=== PATIENT | female | born 1965 | race African-American/Black ===

== ENCOUNTER 2019-05-19 09:38 | Inpatient (IN) | payer MEDICAID ==
[~2019-05-19] VITALS: Ht 170.2 cm; Wt 76.7 kg
[2019-05-19] MEDS ORDERED: SODIUM CHLORIDE 0.9% 1,000 ML IV ONE ×2 (10:10)
[2019-05-19 10:52] LABS: CLARITY URINE CLEAR (CLEAR); COLOR URINE YELLOW (YELLOW); KETONES URINE NEGATIVE (NEGATIVE); LEUKOCYTE ESTERASE URINE NEGATIVE (NEGATIVE); NITRITE URINE NEGATIVE (NEGATIVE); OCCULT BLOOD URINE TRACE (NEGATIVE); PROTEIN URINE 1+ (NEGATIVE); SPECIFIC GRAVITY URINE 1.025 (1.005-1.030); UROBILINOGEN URINE 0.2 E.U./dL (0.2-1.0)
[2019-05-19 10:54] LABS: BASOPHILS % 0.6 % (0.0-2.0); EOSINOPHILS % 0.7 % (0.0-5.0); HEMATOCRIT. 37.1 % (36.0-48.0); HEMOGLOBIN. 12.7 g/dL (12.0-16.0); LYMPHOCYTES % 11.1 % (20.0-50.0); MEAN CORPUSCULAR HEMOGLOBIN 31.1 pg (28.0-32.0); MEAN CORPUSCULAR VOLUME 90.6 fL (81.0-99.0); MEAN PLATELET VOLUME 11.2 fl (7.4-10.4); MONOCYTES % 3.9 % (2.0-8.0); NEUTROPHILS % 83.7 % (40.0-76.0); PLATELET 172 x1000/uL (130-400); RED BLOOD CELL COUNT 4.09 mill/uL (4.2-5.4); RED CELL DISTRIBUTION WIDTH 13.6 % (11.6-14.6)
[2019-05-19] MEDS ORDERED: LORAZEPAM 2MG/ML CPJ IM STA (10:56)
[2019-05-19] MEDS ORDERED: LORAZEPAM 2MG/ML CPJ ONE (10:59)
[2019-05-19 11:00] LABS: CHLORIDE 96 mEq/L (98-107)
[2019-05-19 11:07] LABS: ETHANOL BLOOD < 10 mg/dL
[2019-05-19 11:11] LABS: BG BASE EXCESS 1.3 mmol/L (-2.0-2.0); BG CARBOXYHEMOGLOBIN 0.7 % (0.5-1.5); BG DEOXYHEMOGLOBIN 3.5 % (0.0-5.0); BG FRACTION INSPIRED OXYGEN 21; BG HCO3 ACT 27.1 mmol/L (22.0-26.0); BG METHEMOGLOBIN 0.1 % (0.0-1.5); BG OXYGEN SATURATION 96.5 % (92.0-98.5); BG OXYHEMOGLOBIN 95.7 % (94.0-97.0); BG PCO2 47.8 mmHg (35.0-45.0); BG PH 7.371 (7.350-7.450); BG PO2 90.1 mmHg (75.0-100.0); BG SAMPLE SITE RIGHT RADIAL; BG TOTAL HEMOGLOBIN 12.4 g/dL (12.0-18.0); BG VENT MODE ROOM AIR
[2019-05-19 11:16] LABS: PHENOBARBITAL < 2.1 ug/mL (15.0-40.0); VALPROIC ACID < 3.0 ug/mL (50-100)
[2019-05-19 11:19] LABS: BETA HYDROXYBUTYRATE 0.2 mMol/L (0.0-0.3)
[2019-05-19 11:25] LABS: CARBAMAZEPINE < 0.5 ug/mL (4-12)
[2019-05-19 11:40] LABS: *BARBITURATES SCREEN URINE NEGATIVE (NEGATIVE); *BENZODIAZEPINES SCREEN URINE NEGATIVE (NEGATIVE); *COCAINE SCREEN URINE PRESUMTIVE POSITIVE (NEGATIVE); OPIATES URINE SCREEN NEGATIVE (NEGATIVE)
[2019-05-19 11:41] LABS: CANNABINOID URINE SCREEN NEGATIVE (NEGATIVE); METHADONE URINE SCREEN NEGATIVE (NEGATIVE); PHENCYCLIDINE URINE SCREEN NEGATIVE (NEGATIVE)
[2019-05-19 11:43] LABS: *AMPHETAMINES SCREEN URINE NEGATIVE (NEGATIVE)
[2019-05-19] MEDS ORDERED: INSULIN REGULAR (HUMULIN R) 300UNITS/3ML IV ONE (12:00)
[2019-05-19] MEDS ORDERED: MAGNESIUM/ALUMINUM HYDROXIDE/SIMETHICONE 30ML UDC PO PRN (12:45)
[2019-05-19] MEDS ORDERED: ONDANSETRON HCL 4MG/2ML INJ IV PRN (12:45)
[2019-05-19] MEDS: SODIUM CHLORIDE 0.9% 1,000 ML IV SCH (12:45)
[2019-05-19] MEDS ORDERED: DEXTROSE 50% WATER 50ML SYRINGE IV PRN (12:45)
[2019-05-19] MEDS ORDERED: DOCUSATE SODIUM 100MG CAPSULE PO PRN (12:45)
[2019-05-19] MEDS ORDERED: ZOLPIDEM TARTRATE 5MG TABLET PO PRN (12:45)
[2019-05-19] MEDS ORDERED: GUAIFENESIN 200MG/10ML SUGAR FREE UDC PO PRN (12:45)
[2019-05-19] MEDS ORDERED: IPRATROPIUM/ALBUTEROL 0.5-3(2.5)MG/3ML NEB NEB PRN (12:45)
[2019-05-19] MEDS ORDERED: ACETAMINOPHEN 325MG TABLET PO PRN (12:45)
[2019-05-19] MEDS ORDERED: KETOROLAC 15MG/ML VIAL IV PRN (12:45)
[2019-05-19] MEDS ORDERED: LORAZEPAM 2MG/ML CPJ IV PRN (12:45)
[2019-05-19] MEDS ORDERED: NITROGLYCERIN 0.4MG TABLET SL SL PRN (12:45)
[2019-05-19] MEDS: BLOOD SUGAR DIAGNOSTIC STRIP TEST SCH ×3 (13:53→20:50)
[2019-05-19] MEDS: INSULIN LISPRO 100 UNITS/ML SUBCUT SCH ×5 (14:23→21:00)
[2019-05-19] MEDS ORDERED: LEVETIRACETAM 500MG PREMIX 100 ML IV SCH (16:00)
[2019-05-19] MEDS: ENOXAPARIN 40MG/0.4ML SYR SUBCUT SCH (17:26)
[2019-05-19] MEDS: DILTIAZEM HCL 60MG TABLET PO SCH (18:00)
[2019-05-19] MEDS: CLONIDINE 0.1MG TABLET PO PRN (20:35)
[2019-05-19] MEDS ORDERED: LEVETIRACETAM 500MG TABLET PO SCH (21:00)
[2019-05-19 21:59] VITALS: BP 137/99
[2019-05-19 22:00] VITALS: BP 137/99
[2019-05-19] MEDS ORDERED: INSULIN GLARGINE UD 100 UNITS/ML SYR SUBCUT SCH (23:00)
[2019-05-20] VITALS (14 sets, daily range): BP systolic 124–158; BP diastolic 69–114
[2019-05-20] MEDS: DILTIAZEM HCL 60MG TABLET PO SCH ×5 (00:42→23:24)
[2019-05-20] MEDS: SODIUM CHLORIDE 0.9% 1,000 ML IV SCH ×3 (03:30→17:48)
[2019-05-20] MEDS: BLOOD SUGAR DIAGNOSTIC STRIP TEST SCH ×4 (06:01→21:00)
[2019-05-20] MEDS: INSULIN LISPRO 100 UNITS/ML SUBCUT SCH ×7 (06:01→21:00)
[2019-05-20] MEDS: FAMOTIDINE 20MG TABLET PO SCH (08:57)
[2019-05-20] MEDS: ASPIRIN 325MG EC TABLET PO SCH (08:57)
[2019-05-20] MEDS ORDERED: LEVETIRACETAM 500MG PREMIX 100 ML IV SCH (09:00)
[2019-05-20] MEDS: ENOXAPARIN 40MG/0.4ML SYR SUBCUT SCH (17:47)
[2019-05-20] MEDS ORDERED: INSULIN GLARGINE UD 100 UNITS/ML SYR SUBCUT SCH (23:00)
[2019-05-20] MEDS: LEVETIRACETAM 500MG PREMIX 100 ML IV SCH (23:24)
[2019-05-21] VITALS (13 sets, daily range): BP systolic 105–168; BP diastolic 61–98
[2019-05-21] MEDS: SODIUM CHLORIDE 0.9% 1,000 ML IV SCH (04:23)
[2019-05-21] MEDS: DILTIAZEM HCL 60MG TABLET PO SCH ×4 (06:00→23:44)
[2019-05-21] MEDS: INSULIN LISPRO 100 UNITS/ML SUBCUT SCH ×7 (06:42→21:00)
[2019-05-21] MEDS: BLOOD SUGAR DIAGNOSTIC STRIP TEST SCH ×4 (06:43→21:11)
[2019-05-21] MEDS: FAMOTIDINE 20MG TABLET PO SCH (08:34)
[2019-05-21] MEDS: ASPIRIN 325MG EC TABLET PO SCH (08:34)
[2019-05-21] MEDS: LEVETIRACETAM 500MG PREMIX 100 ML IV SCH ×2 (08:34→20:56)
[2019-05-21] MEDS: CLONIDINE 0.1MG TABLET PO PRN (08:40)
[2019-05-21] MEDS: ENOXAPARIN 40MG/0.4ML SYR SUBCUT SCH (17:34)
[2019-05-21] MEDS ORDERED: INSULIN GLARGINE UD 100 UNITS/ML SYR SUBCUT SCH ×2 (22:00→23:00)
[2019-05-22] VITALS (7 sets, daily range): BP systolic 139–157; BP diastolic 64–103
[2019-05-22] MEDS: DILTIAZEM HCL 60MG TABLET PO SCH (06:05)
[2019-05-22] MEDS: BLOOD SUGAR DIAGNOSTIC STRIP TEST SCH ×2 (06:24→11:53)
[2019-05-22 06:33] LABS: BASOPHILS % 0.4 % (0.0-2.0); EOSINOPHILS % 5.7 % (0.0-5.0); HEMATOCRIT. 33.9 % (36.0-48.0); HEMOGLOBIN. 11.8 g/dL (12.0-16.0); LYMPHOCYTES % 48.6 % (20.0-50.0); MEAN CORPUSCULAR HEMOGLOBIN 30.9 pg (28.0-32.0); MEAN CORPUSCULAR VOLUME 88.5 fL (81.0-99.0); MEAN PLATELET VOLUME 10.6 fl (7.4-10.4); MONOCYTES % 5.6 % (2.0-8.0); NEUTROPHILS % 39.7 % (40.0-76.0); PLATELET 157 x1000/uL (130-400); RED BLOOD CELL COUNT 3.83 mill/uL (4.2-5.4); RED CELL DISTRIBUTION WIDTH 13.6 % (11.6-14.6)
[2019-05-22] MEDS: INSULIN LISPRO 100 UNITS/ML SUBCUT SCH ×2 (06:36→08:23)
[2019-05-22 06:50] LABS: CHLORIDE 106 mEq/L (98-107)
[2019-05-22 06:57] LABS: PHOSPHORUS 2.8 mg/dL (2.5-4.9)
[2019-05-22] MEDS: ASPIRIN 325MG EC TABLET PO SCH (08:22)
[2019-05-22] MEDS: FAMOTIDINE 20MG TABLET PO SCH (08:22)
[2019-05-22] MEDS: LEVETIRACETAM 500MG PREMIX 100 ML IV SCH (08:23)
== END 2019-05-22 12:33 | disposition home or self-care (01) | DRG 53 ==
LOC: ER 09:38 → EDBD 12:23 → 3WST 12:23 → CANRESERV 20:42 → ENRESERV 20:42
PROVIDERS: ADMIT Internal Medicine; ATTEND Internal Medicine
DX: G40.909 Epilepsy, unspecified, not intractable, without status epilepticus (principal); N17.0 Acute kidney failure with tubular necrosis; G92 Toxic encephalopathy; E11.65 Type 2 diabetes mellitus with hyperglycemia; E87.1 Hypo-osmolality and hyponatremia; F14.10 Cocaine abuse, uncomplicated; I10 Essential (primary) hypertension; F17.210 Nicotine dependence, cigarettes, uncomplicated; R74.0 Nonspecific elevation of levels of transaminase and lactic acid dehydrogenase [LDH]
CPT/HCPCS: 36415; 36600; 71045; 80053; 80061; 80156; 80165; 80184; 80185; 80305; 80320; 81003; 82010; 82375; 82805; 82962; 83036; 83735; 84100; 85025; 93005; 93970; 96365; 97162; 99285; J1650; J1815; J1953; J2060; J7030; G0480